=== PATIENT | male | born 1940 | race Caucasian/White ===

== ENCOUNTER 2021-01-07 17:54 | Observation (INO) | payer MEDICARE ==
[~2021-01-07] VITALS: Ht 182.9 cm; Wt 79.4 kg
[2021-01-07 18:22] LABS: RED BLOOD COUNT 5.15 M/UL (4.20-5.50); WHITE BLOOD COUNT 9.9 K/UL (4.5-11.0)
[2021-01-07 19:03] LABS: BUN/CREATININE RATIO 18 (0-10)
[2021-01-08] MEDS ORDERED: TENORMIN 25 MG25 MG PO (11:33)
[2021-01-08] MEDS ORDERED: ZESTRIL/PRINIVI10 MG PO (11:34)
[2021-01-08] MEDS ORDERED: LIPITOR20 MG PO (11:34)
[2021-01-08] MEDS ORDERED: OMEPRAZOLE20 MG PO (11:35)
[2021-01-08] MEDS ORDERED: METAMUCIL PACK3.4 GM PO (11:35)
[2021-01-08] MEDS ORDERED: FLOMAX 0.4 MG0.4 MG PO (11:36)
[2021-01-08] MEDS ORDERED: ARTIFICIAL TEAR15 M6 EYEBOTH (11:36)
[2021-01-08] MEDS ORDERED: ADULT LOW DOSE81 MG PO (11:37)
[2021-01-08] MEDS ORDERED: XALATAN2.5 ML EYERT (11:37)
[2021-01-08] MEDS ORDERED: DAILY VITAMIN1 EAC2 PO (11:37)
[2021-01-09 04:25] LABS: BUN/CREATININE RATIO 18 (0-10)
== END 2021-01-09 16:43 | disposition home or self-care (01) ==
LOC: ER1 17:54 → CDU 20:19 → M/S 20:19
PROVIDERS: Emergency Medicine; Internal Medicine; ADMIT Internal Medicine
DX: G45.9 Transient cerebral ischemic attack, unspecified (principal); E11.9 Type 2 diabetes mellitus without complications; E66.9 Obesity, unspecified; I11.9 Hypertensive heart disease without heart failure; E78.5 Hyperlipidemia, unspecified; J32.0 Chronic maxillary sinusitis; H91.90 Unspecified hearing loss, unspecified ear; Z68.23 Body mass index [BMI] 23.0-23.9, adult; Z79.82 Long term (current) use of aspirin; Z79.899 Other long term (current) drug therapy; Z20.822 Contact with and (suspected) exposure to COVID-19
CPT/HCPCS: ECHO; 36415; 70450; 70551; 71045; 80053; 80061; 82140; 82550; 82553; 82607; 82746; 82962; 83036; 83874; 84439; 84443; 84484; 85025; 85610; 85652; 85730; 86140; 92610; 93005; 93306; 93880; 96372; 97110; 97116-GP-CQ; 97161; 97166; 99285; G0378; J1650; U0002

== ENCOUNTER 2021-09-21 15:44 | Emergency (ER) | payer MEDICARE ==
[~2021-09-21 15:44] MED LIST: ADULT LOW DOSE81 MG PO; ARTIFICIAL TEAR15 M6 EYEBOTH; DAILY VITAMIN1 EAC2 PO; FLOMAX 0.4 MG0.4 MG PO; LIPITOR20 MG PO; METAMUCIL PACK3.4 GM PO; OMEPRAZOLE20 MG PO; TENORMIN 25 MG25 MG PO; XALATAN2.5 ML EYERT; ZESTRIL/PRINIVI10 MG PO
== END 2021-09-21 18:00 | disposition home or self-care (01) ==
LOC: ER1 15:44
DX: S20.211A Contusion of right front wall of thorax, initial encounter (principal); S80.212A Abrasion, left knee, initial encounter; S80.211A Abrasion, right knee, initial encounter; E11.9 Type 2 diabetes mellitus without complications; E78.5 Hyperlipidemia, unspecified; I10 Essential (primary) hypertension; W01.0XXA Fall on same level from slipping, tripping and stumbling without subsequent striking against object, initial encounter
CPT/HCPCS: 70450; 70486; 71111; 73130; 73564; 99283